=== PATIENT | female | born 1970 | race Caucasian/White ===

== ENCOUNTER 2021-10-22 11:58 | Emergency (ER) | payer MEDICARE, MEDICAID ==
[2021-10-22 15:28] LABS: Basophils # (Auto) 0.2 K/mm3 (0.0-0.1); Eosinophils % (Auto) 0.7 % (0.0-4.3); Monocytes # (Auto) 0.5 K/mm3 (0.0-0.8); Monocytes % (Auto) 7.3 % (0.0-7.3)
[2021-10-22 15:56] LABS: Alanine Aminotransferase 17 units/L (7-56); Albumin 4.5 g/dL (3.9-5); BUN/Creatinine Ratio 15; Blood Urea Nitrogen 9 mg/dL (7-17); Calcium 10.5 mg/dL (8.4-10.2); Hemolysis Index 2
[2021-10-22 15:59] LABS: Hematocrit 29.8 % (30.3-42.9); Hemoglobin 8.7 gm/dl (10.1-14.3); Lymphocytes % (Auto) 24.6 % (13.4-35.0); Mean Corpuscular HGB Conc 29 % (30-34); Mean Corpuscular Volume 54 fl (79-97); Red Cell Distribution Width 20.1 % (13.2-15.2)
[2021-10-22 16:00] LABS: Basophils % (Auto) 2.4 % (0.0-1.8); Lymphocytes # (Auto) 1.6 K/mm3 (1.2-5.4)
[2021-10-22 16:01] LABS: Mucus,Urine 1+ /HPF
[2021-10-22 16:35] LABS: Color,Urine Yellow (Yellow)
[2021-10-22 16:39] LABS: Platelet Count 117 K/mm3 (140-440)
--- NOTE | 2021-10-22 17:02 | Emergency Department Report ---
ED General Adult HPI - General Chief complaint: Abdominal Pain Stated complaint: STOMACH PAIN Time Seen by Provider: 10/22/21 16:51 Source: patient Mode of arrival: Ambulatory Limitations: No Limitations - Related Data Previous Rx's Medication Instructions Recorded Last Taken Type Amoxicillin [Amoxicillin TAB] 875 mg PO BID #28 10/22/21 Unknown Rx Bismuth Subsalicylate [Bismuth] 262 mg PO BID #30 10/22/21 Unknown Rx Clarithromycin [Biaxin] 500 mg PO BID #28 tab 10/22/21 Unknown Rx Omeprazole 40 mg PO DAILY #30 10/22/21 Unknown Rx Allergies Allergy/AdvReac Type Severity Reaction Status Date / Time No Known Allergies Allergy Unverified 10/22/21 13:01 ED Review of Systems ROS: Stated complaint: STOMACH PAIN Other details as noted in HPI Comment: All other systems reviewed and negative ED Past Medical Hx - Past Medical History Previous Medical History?: Yes Hx Hypertension: Yes - Surgical History Past Surgical History?: Yes Additional Surgical History: x 3, Tummy tuck - Medications Home Medications: Home Medications Medication Instructions Recorded Confirmed Last Taken Type Amoxicillin [Amoxicillin TAB] 875 mg PO BID #28 10/22/21 Unknown Rx Bismuth Subsalicylate [Bismuth] 262 mg PO BID #30 10/22/21 Unknown Rx Clarithromycin [Biaxin] 500 mg PO BID #28 tab 10/22/21 Unknown Rx Omeprazole 40 mg PO DAILY #30 10/22/21 Unknown Rx ED Physical Exam - General Limitations: No Limitations General appearance: alert, in no apparent distress - Head Head exam: Present: atraumatic, normocephalic - Eye Eye exam: Present: normal appearance - ENT ENT exam: Present: mucous membranes moist - Neck Neck exam: Present: normal inspection - Respiratory Respiratory exam: Present: normal lung sounds bilaterally. Absent: respiratory distress - Cardiovascular Cardiovascular Exam: Present: regular rate, normal rhythm. Absent: systolic murmur, diastolic murmur, rubs, gallop - GI/Abdominal GI/Abdominal exam: Present: soft, normal bowel sounds - Extremities Exam Extremities exam: Present: normal inspection - Back Exam Back exam: Present: normal inspection - Neurological Exam Neurological exam: Present: alert, oriented X3 - Psychiatric Psychiatric exam: Present: normal affect, normal mood - Skin Skin exam: Present: warm, dry, intact, normal color. Absent: rash ED Course Vital Signs 10/22/21 12:54 Temperature 99.0 F Pulse Rate 69 Respiratory 16 Rate Blood Pressure 154/87 O2 Sat by Pulse 100 Oximetry ED Medical Decision Making - Lab Data Result diagrams: 10/22/21 14:38 10/22/21 14:34 - Medical Decision Making This patient presents with abdominal pain of unclear etiology. Their evaluation has not identified a emergent etiology for the abdominal pain. Specifically, given the very benign exam, normal laboratory studies, and lack of significant risk factors, I have a very low suspicion for appendicitis, ischemic bowel, bowel perforation, or any other life threatening disease. I have discussed with the patient the level of uncertainty with undifferentiated abdominal pain and clearly explained the need to follow-up as noted on the discharge instructions, or return to the Emergency Department immediately if the pain worsens, develops fever, persistent and uncontrollable vomiting, or for any new symptoms or concerns. I discussed with the patient that this presentation today for abdominal pain could represent a significant risk for an acute abdominal process. Although the tests in the ED were essentially normal, there is still a possibility of a process such as appendicitis, diverticulitis, cholecystitis, ulcer, early bowel obstruction, mesenteric ischemia, kidney stone, or even kidney infection which could subsequently cause disability or . The patient understands that they must return within 24 hours for a recheck or see their physician within 24 hours for re-exam due to the possibility of significant surgical or medical process. Critical care attestation.: If time is entered above; I have spent that time in minutes in the direct care of this critically ill patient, excluding procedure time. ED Disposition Clinical Impression: Abdominal pain, Epigastric abdominal pain Disposition: HOME / SELF CARE / HOMELESS Condition: Stable Instructions: Upper Endoscopy, Adult, Care After, Abdominal Pain, Adult, [id number], Abdominal Pain (ED) Additional Instructions: You have been evaluated emergency department today for abdominal pain. Your evaluation did not show evidence of any medical conditions requiring emergent intervention at this time. There is no elevation to your labs findings suggestive upper abdominal issue such as peptic ulcer disease/gastritis or GERD you have been treated accordingly and responded to therapy is recommended to follow-up with gastroenterology for an EGD Please schedule an appointment with your primary care physician. Return to emergency department if you experience worsening uncontrolled pain, fevers of 100.4 or greater, recurrent vomiting, inability to tolerate food or fluids by mouth, bloody stools or vomit, black tarry stools, or any other concerning symptoms. Prescriptions: Amoxicillin [Amoxicillin TAB] 875 mg PO BID #28 Clarithromycin [Biaxin] 500 mg PO BID #28 tab Bismuth Subsalicylate [Bismuth] 262 mg PO BID #30 Omeprazole 40 mg PO DAILY #30 Referrals: [facility] [Provider Group] - 3-5 Days ELIER SEALS MD [Primary Care Provider] - 3-5 Days
[2021-10-22] MEDS ORDERED: ALUM-MAG HYDROXIDE-SIMETHICONE 200-200-20MG/5ML ORAL LIQD 30 ML PO STA (18:01)
[2021-10-22] MEDS ORDERED: diphenhydrAMINE 25 MG/10 ML ORAL LIQUID PO ONE (18:01)
[2021-10-22] MEDS ORDERED: LIDOCAINE VISCOUS 2% 15 ML ORAL LIQD MM ONE (18:02)
[2021-10-22 22:25] VITALS: BP 125/88
== END 2021-10-22 22:24 | disposition home or self-care (01) ==
LOC: ED 11:58
DX: R10.13 Epigastric pain (principal); I10 Essential (primary) hypertension
CPT/HCPCS: 36415; 80053; 81001; 83690; 85025; 99283; Q0163